=== PATIENT | female | born 1945 | race Caucasian/White ===

== ENCOUNTER → 2025-03-03 10:42 | Outpatient (REF) | payer MEDICARE, OTHER, SELFPAY | LOC: HWRAD 10:42 | PROVIDERS: ATTENDING PHYSICIAN Family Medicine | DX: R91.8 Other nonspecific abnormal finding of lung field (principal); R26.2 Difficulty in walking, not elsewhere classified; W19.XXXD Unspecified fall, subsequent encounter; M25.512 Pain in left shoulder | CPT/HCPCS: 71250; 73030 ==

== ENCOUNTER 2025-03-06 06:59 | Outpatient (RCR) | payer MEDICARE, OTHER, SELFPAY | END 2025-03-06 23:59 | disposition home or self-care (01) | LOC: RPT 06:59 | PROVIDERS: ATTENDING PHYSICIAN Family Medicine | DX: R26.2 Difficulty in walking, not elsewhere classified (principal); Z73.6 Limitation of activities due to disability; M62.81 Muscle weakness (generalized); R26.89 Other abnormalities of gait and mobility; R26.81 Unsteadiness on feet; R29.6 Repeated falls | CPT/HCPCS: 97110; 97112; 97161; 97530 ==